=== PATIENT | female | born 1970 | race Caucasian/White ===

== ENCOUNTER 2016-10-11 07:04 | Emergency (ER) | payer BC ==
--- NOTE | 2016-10-11 07:27 | UC ---
Respiratory Complaint HPI - HPI Summary HPI Summary: The patient comes in today for: 1. Cough: Onset: yesterday. Palliative/provocative: Nothing makes it better or worse except laughing makes the cough worse. Quality: Dry. Region: Lungs Severity: 0/10 Time: Cough comes and goes. Associated symptoms: Chest pain: None. Dyspnea: "Somewhat--minor." Rhinitis: None. Fever: 37.1 this morning. Last night: Broke a sweat and at one time her heart was "racing." When I first checked it, it was 160. Then it dropped down to 120-130." She has "minor " palpitations "every once in a while--not a consistent thing." She has not had any symptoms (chest pain, dyspnea, near-syncope) with her heart fluttering. Only other symptoms, body aches which are not bad by her report. * - History of Current Complaint Chief Complaint: UCRespiratory Stated Complaint: COUGH/CONGESTION Time Seen by Provider: 10/11/16 07:20 Hx Obtained From: Patient Hx Last Menstrual Period: UTERINE ABLATION 2012 - Allergies/Home Medications Allergies/Adverse Reactions: Allergies Allergy/AdvReac Type Severity Reaction Status Date / Time No Known Allergies Allergy Verified 10/11/16 07:09 Home Medications: Home Medications Albuterol Sulfate [Proair Respiclick] 108 mcg IN 10/11/16 [History] Cholecalciferol [D 1000] 1,000 unit PO DAILY 10/11/16 [History Confirmed ] Glucosamine-Chondroitin [Glucosamine & Chondroitin 500-400 mg] 1 cap PO DAILY [History Confirmed 10/11/16] Ibuprofen TAB* [Advil TAB*] 400 mg PO Q6H PRN 10/11/16 [History Confirmed ] Methylcellulose (Laxative) [Fiber Therapy] 500 mg PO DAILY 10/11/16 [History Confirmed 10/11/16] Otc, Diuretic 10/11/16 [History] PMH/Surg Hx/FS Hx/Imm Hx Previously Healthy: No Endocrine History Of: Denies: Diabetes, Thyroid Disease, Hyperthyroidism, Hypothyroidism, Dyslipidemia Cardiovascular History Of: Denies: Cardiac Disorders, Hypertension, Pacemaker/ICD, Myocardial Infarction , Congestive Heart Failure, Atrial Fibrillation, Deep Vein Thrombosis, Bleeding Disorders Respiratory History Of: Reports: Asthma - She will use an inhaler occasionally. Denies: COPD, Bronchitis, Pneumonia, Pulmonary Embolism GI/ History Of: Denies: Gastroesophageal Reflux, Ulcer, Gastrointestinal Bleed, Gall Bladder Disease, Kidney Stones, Diverticulitis, Renal Disease, Urosepsis Neurological History Of: Denies: TIA, CVA, Dementia, Seizures, Migraine Psychological History Of: Reports: Anxiety - NO MEDS - CLAUSTAPHOBIA Denies: Depression, Bipolar Disorder, Schizophrenia, Post Traumatic Stress Disorder Cancer History Of: Denies: Lung Cancer, Colorectal Cancer, Breast Cancer, Prostate Cancer, Cervical Cancer Other History Of: Negative For: HIV, Hepatitis B, Hepatitis C, Anticoagulant Therapy - Surgical History Surgical History: Yes Surgery Procedure, Year, and Place: 2012 ablation and sterilization, [place] [facility]. 10/22 RT SHOULDER SURGERY. VEIN STRIPPING 10/24. COLONOSCOPY WITH POLOP REMOVAL - Family History Known Family History: Positive: Hypertension Negative: Cardiac Disease - Social History Occupation: Employed Full-time Alcohol Use: Weekly Alcohol Amount: few times a week Substance Use Type: None Smoking Status (MU): Former Smoker Type: Cigarettes Amount Used/How Often: 2-3 cigarettes daily Length of Time of Smoking/Using Tobacco: LONG TIME OFF AND ON When Did the Patient Quit Smoking/Using Tobacco: JANUARY 2016 - Immunization History Most Recent Influenza Vaccination: none Review of Systems Constitutional: Negative Skin: Negative Eyes: Negative ENT: Negative Respiratory: Cough Cardiovascular: Negative Gastrointestinal: Negative Genitourinary: Negative All Other Systems Reviewed And Are Negative: Yes Physical Exam Triage Information Reviewed: Yes Appearance: Well-Appearing, No Pain Distress, Well-Nourished Vital Signs: Initial Vital Signs Temp 98.1 F 10/11/16 07:13 Pulse 94 10/11/16 07:13 Resp 20 10/11/16 07:13 BP 130/87 10/11/16 07:13 Pulse Ox 99 10/11/16 07:13 Vital Signs Reviewed: Yes Eyes: Positive: Conjunctiva Clear. Negative: Discharge ENT: Positive: Hearing grossly normal. Negative: Pharyngeal erythema, Nasal congestion, Nasal drainage, TM bulging, TM dull, TM red, Tonsillar swelling, Tonsillar exudate Dental: Negative: Gross Decay/Caries @, Dental Fracture @ Neck: Positive: Supple, Nontender, No Lymphadenopathy. Negative: Nuchal Rigidity Respiratory: Positive: Lungs clear, No respiratory distress, No accessory muscle use. Negative: Accessory muscle use, Crackles, Wheezing Cardiovascular: Positive: RRR, No Murmur Abdomen Description: Positive: Nontender, No Organomegaly, Soft. Negative: Distended, Guarding Musculoskeletal: Positive: Strength Intact, ROM Intact, No Edema Neurological: Positive: Alert, Muscle Tone Normal Psychological: Positive: Age Appropriate Behavior, Consolable Skin: Negative: rashes, breakdown UC Diagnostic Evaluation - Laboratory O2 Sat by Pulse Oximetry: 99 Respiratory Course/Dx - Course Course Of Treatment: Patient wanted an antibiotic in case her cough/rhinitis turns purulent with continued symptoms. - Differential Dx/Diagnosis Differential Diagnosis/HQI/PQRI: Bronchitis, Laryngitis, Sinusitis Provider Diagnoses: Upper respiratory infection (viral) Discharge - Discharge Plan Condition: Stable Disposition: HOME Patient Education Materials: Upper Respiratory Infection (ED) Referrals: Lauren Jennings MD [Primary Care Provider] - 1 Week (Please see your primary care provider in about a week to see how well you are doing. If you get worse, please be seen sooner.)
[2016-10-11 07:41] VITALS: BP 130/87
== END 2016-10-11 07:48 | disposition home or self-care (01) ==
LOC: UCCORT 07:04
DX: J06.9 Acute upper respiratory infection, unspecified (principal); Z87.891 Personal history of nicotine dependence
CPT/HCPCS: 99212; G0463

== ENCOUNTER 2018-11-27 07:00 | Emergency (ER) | payer BC ==
[2018-11-27 07:19] VITALS: BP 130/81
--- NOTE | 2018-11-27 07:36 | ED ---
Respiratory - HPI Summary HPI Summary: 48 yr old female with the complaint of coughing, sputum production, sinus pain and pressure, post nasal drip. Onset over a week ago. She states she feels she is wheezing. She used her albuterol MDI that is left over from her last bronchitis episode, and it is helping. She is not a smoker any longer, but she has a 20 pack year history. She denies fever, but has felt fatigued. No other complaints. - History of Current Complaint Chief Complaint: UCRespiratory Stated Complaint: UPPER RESPIRATORY CONCERN Time Seen by Provider: 11/27/18 07:20 Pain Intensity: 0 - Allergy/Home Medications Allergies/Adverse Reactions: Allergies Allergy/AdvReac Type Severity Reaction Status Date / Time No Known Allergies Allergy Verified 11/27/18 07:13 Home Medications: Home Medications Hormone Patch 1 patch TOPICAL THSA 11/27/18 [History Confirmed 11/27/18] medroxyPROGESTERone TAB* [Provera TAB*] 2.5 mg PO EVERY OTHER DAY 11/27/18 [ History Confirmed 11/27/18] PMH/Surg Hx/FS Hx/Imm Hx Endocrine/Hematology History: Denies: Hx Anticoagulant Therapy, Hx Diabetes, Hx Thyroid Disease Cardiovascular History: Denies: Hx Congestive Heart Failure, Hx Deep Vein Thrombosis, Hx Hypertension - has been borderline, Hx Myocardial Infarction, Hx Pacemaker/ICD Respiratory History: Denies: Hx Asthma, Hx Chronic Obstructive Pulmonary Disease (COPD), Hx Lung Cancer, Hx Pneumonia, Hx Pulmonary Embolism GI History: Denies: Hx Gall Bladder Disease, Hx Gastrointestinal Bleed, Hx Ulcer, Hx Urosepsis History: Denies: Hx Dialysis, Hx Kidney Stones, Hx Renal Disease Musculoskeletal History: Reports: Hx Arthritis - LOWER BACK, Hx Bursitis - HX OF RIGHT HIP - NO PROBLEMS PRESENTLY Sensory History: Denies: Hx Contacts or Glasses, Hx Hearing Aid Opthamlomology History: Denies: Hx Contacts or Glasses Neurological History: Denies: Hx Dementia, Hx Migraine, Hx Seizures, Hx Transient Ischemic Attacks (TIA) Psychiatric History: Reports: Hx Anxiety - NO MEDS - CLAUSTAPHOBIA Denies: Hx Depression, Hx Panic Disorder, Hx Schizophrenia, Hx Bipolar Disorder - Surgical History Surgery Procedure, Year, and Place: 2011 [facility]22 RT SHOULDER SURGERY. VEIN STRIPPING 10/24 Hx Anesthesia Reactions: No - LOCAL ANESTHESIA IN OFFICE Infectious Disease History: No Infectious Disease History: Denies: Traveled Outside the [place] in Last 30 Days - Family History Known Family History: Positive: Hypertension Negative: Cardiac Disease - Social History Occupation: Employed Full-time Alcohol Use: Weekly Alcohol Amount: few times a week Substance Use Type: Reports: None Smoking Status (MU): Former Smoker Type: Cigarettes Amount Used/How Often: 2-3 cigarettes daily Length of Time of Smoking/Using Tobacco: LONG TIME OFF AND ON Review of Systems Positive: Fatigue Positive: Nasal Discharge, Other - sinsu pressure Positive: Cough All Other Systems Reviewed And Are Negative: Yes Physical Exam Triage Information Reviewed: Yes Vital Signs On Initial Exam: Initial Vitals Temp Pulse Resp BP Pulse Ox 97.5 F 77 16 130/81 100 11/27/18 07:12 11/27/18 07:12 11/27/18 07:12 11/27/18 07:12 11/27/18 07:12 Vital Signs Reviewed: Yes Appearance: Positive: Well-Appearing, No Pain Distress Skin: Positive: Warm, Skin Color Reflects Adequate Perfusion Head/Face: Positive: Normal Head/Face Inspection Eyes: Positive: EOMI ENT: Positive: Nasal congestion, TMs normal, Sinus tenderness Neck: Positive: Nontender Respiratory/Lung Sounds: Positive: Clear to Auscultation, Breath Sounds Present Cardiovascular: Positive: RRR. Negative: Murmur Abdomen Description: Negative: Distended Musculoskeletal: Positive: Strength/ROM Intact Neurological: Positive: Sensory/Motor Intact, Alert, Oriented to Person Place, Time, CN Intact II-III Psychiatric: Positive: Normal Diagnostics - Vital Signs Vital Signs Temp Pulse Resp BP Pulse Ox 11/27/18 07:12 97.5 F 77 16 130/81 100 - Laboratory Lab Statement: Any lab studies that have been ordered have been reviewed, and results considered in the medical decision making process. Disposition - Course Course Of Treatment: 48 yr old with sinusitis and bronchitis. Rx with augmentin , prednisone and albuterol. - Diagnoses Provider Diagnoses: Sinusitis, Acute bronchitis Discharge - Sign-Out/Discharge Documenting (check all that apply): Patient Departure All imaging exams completed and their final reports reviewed: No Studies - Discharge Plan Condition: Good Disposition: HOME Prescriptions: Albuterol HFA INHALER* [Ventolin HFA Inhaler*] 1 - 2 puff INH Q6H PRN #1 mdi PRN Reason: Cough Amoxicillin/Clavulanate TAB* [Augmentin TAB 875*] 875 mg PO BID #20 tab predniSONE TAB* [Deltasone 20 MG TAB*] 40 mg PO DAILY #10 tab Patient Education Materials: Sinusitis (ED), Acute Bronchitis (ED) Referrals: Lauren Jennings MD [Primary Care Provider] - 2 Days - Billing Disposition and Condition Condition: GOOD Disposition: Home
== END 2018-11-27 07:35 | disposition home or self-care (01) ==
LOC: UCCORT 07:00
DX: J20.9 Acute bronchitis, unspecified (principal); J32.9 Chronic sinusitis, unspecified; Z87.891 Personal history of nicotine dependence
CPT/HCPCS: 99212; G0463

== ENCOUNTER 2019-03-17 10:12 | Emergency (ER) | payer BC ==
--- OUTSIDE RECORDS SUMMARY | 2019-03-17 10:31 | XMS REPORT | Continuity of Care Document ---
:1970 External Reference #:[id number] Author Name Jeni Fabian Care Team Providers Name Role Phone Patient's Choice Care Team Information Pediatric Licensed Practical Nurse Unavailable Lauren Jennings MD Primary Care Physician Unavailable Payers Date Identification Numbers Payment Provider Subscriber Policy Number: [id number] [facility] Tanvi Oconnor PayID: [id number] [address] [place] [address] Problems Active Problems Provider Date Magnetic resonance imaging of brain abnormal Tyra Gardiner M.D. Onset: 09/27 Note: nonspecific white matter changes (stable on serial MRI Brains from May 2011 to August 2014). Idiopathic stabbing headache Tyra Gardiner M.D. 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 hours, as needed for stabbing headache, take with food. Glucosamine Chondroitin 1 po qd Unknown Tablets Lysine 1 po qd Unknown 1000mg Tablets Vitamin D3 High Potency 1 by mouth Unknown 1000Unit every day Capsules Multivitamins 1 by mouth Unknown Capsules every day Estradiol Apply 1 Patch Unknown 0.05mg/24HR Patches On The Skin 2 Biweek Times Weekly Medroxyprogesterone Take 1 Tablet Unknown Acetate By Mouth Every 2.5mg Tablets Day History Medications Indomethacin take 1 by mouth 30caps Tyra Gardiner, 02/22/2014 - 50mg Capsules [id number] as needed M.D. 09/27/2014 for sharp stabbing headaches. Take with food. Percocet 1-2 tabs po q 4-6 60tabs Arash Greene, 10/14/2013 - 5-325mg Tablets prn pain M.D. 12/07/2013 Diazepam 1 tab po 1 hour 2tabs Daysi Santamaria, 07/15/2013 - 5mg Tablets prior to MRI. 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 Wou will need superintendent drivers to take you home from facilit Calcium 2 po qd 60tabs Unknown - 500mg Tablets 04/30/2016 Co Q10 Maximum Strength 1 po qd Unknown - 200mg 12/11/2015 Capsules Metformin HCL 1 by mouth once Unknown - 1000mg Tablets daily.. 09/10/2016 Spironolactone 1 by mouth once Unknown - 25mg Tablets daily 09/10/2016 Hydrocodone-Acetaminophen 1 by mouth every Unknown - 5-325mg 4-6 hours prn. 04/30/2016 Tablets Meloxicam once daily with Unknown - 15mg Tablets food 04/30/2016 Levocetirizine 1 by mouth every Unknown - Dihydrochloride day 04/30/2016 5mg Tablets Montelukast Sodium 1 by mouth every Unknown - 10mg Tablets day 04/30/2016 Hydrochlorothiazide Take 1 Tablet By Unknown - 25mg Tablets Mouth Every Day 02/21/2019 Medications Administered in Office Medication SIG Qnty Indications Ordering Provider Date Celestone 3 mg and 3mg Juan Luis Ramirez MD 11/19/2017 Injection Celestone 3 mg and 3mg Juan Luis Ramirez MD 11/19/2017 Injection Depomedrol 40MG Juan Luis Ramirez MD 11/25/2016 Injection Depomedrol 40MG Juan Luis Ramirez MD 09/20/2016 Injection Vital Signs Date Vital Result Comment 03/01/2019 9:32am Height 65 inches 5'5" Weight 160.00 lb Heart Rate 77 /min BP Systolic Sitting 120 mmHg BP Diastolic Sitting 80 mmHg Respiratory Rate 12 /min Pain Level 5 O2 % BldC Oximetry 93 % BMI (Body Mass Index) 26.6 kg/m2 11/19/2017 8:33am Height 65 inches 5'5" Weight 158.00 lb Heart Rate 66 /min BP Systolic Sitting 120 mmHg BP Diastolic Sitting 78 mmHg Respiratory Rate 16 /min Pain Level 2 BMI (Body Mass Index) 26.3 kg/m2 11/25/2016 2:33pm Height 65 inches 5'5" Weight 158.00 lb Heart Rate 78 /min BP Systolic Sitting 118 mmHg BP Diastolic Sitting 80 mmHg Respiratory Rate 16 /min Pain Level 4 BMI (Body Mass Index) 26.3 kg/m2 11/01/2016 1:45pm Height 65 inches 5'5" Weight 158.00 lb BP Systolic Sitting 108 mmHg BP Diastolic Sitting 72 mmHg Respiratory Rate 18 /min Pain Level 2 BMI (Body Mass Index) 26.3 kg/m2 09/20/2016 3:11pm Height 65 inches 5'5" Weight 155.00 lb BMI (Body Mass Index) 25.8 kg/m2 09/11/2016 8:51am Height 65 inches 5'5" Weight 155.00 lb BP Systolic Sitting 110 mmHg BP Diastolic Sitting 78 mmHg Pain Level 4 BMI (Body Mass Index) 25.8 kg/m2 05/29/2016 8:19am Height 65 inches 5'5" Weight 155.00 lb Heart Rate 68 /min BP Systolic Sitting 134 mmHg BP Diastolic Sitting 86 mmHg BMI (Body Mass Index) 25.8 kg/m2 05/01/2016 8:13am Height 65 inches 5'5" Weight 157.00 lb Heart Rate 58 /min BP Systolic 132 mmHg BP Diastolic 82 mmHg Respiratory Rate 16 /min BMI (Body Mass Index) 26.1 kg/m2 12/12/2015 10:10am Height 65 inches 5'5" Weight 157.00 lb Heart Rate 60 /min BP Systolic Sitting 122 mmHg BP Diastolic Sitting 88 mmHg BMI (Body Mass Index) 26.1 kg/m2 09/27/2014 2:11pm Height 65 inches 5'5" Weight 160.00 lb Heart Rate 58 /min BP Systolic Sitting 112 mmHg BP Diastolic Sitting 78 mmHg BMI (Body Mass Index) 26.6 kg/m2 05/19/2014 1:39pm Height 65 inches 5'5" Weight 158.00 lb Pain Level 1 BMI (Body Mass Index) 26.3 kg/m2 01/20/2014 7:59am Height 65 inches 5'5" Weight 158.00 lb Heart Rate 75 /min BP Systolic 136 mmHg BP Diastolic 96 mmHg Pain Level 2 BMI (Body Mass Index) 26.3 kg/m2 12/07/2013 11:31am Height 65 inches 5'5" Weight 158.00 lb Heart Rate 85 /min BP Systolic 144 mmHg BP Diastolic 97 mmHg BMI (Body Mass Index) 26.3 kg/m2 11/02/2013 8:04am Height 65 inches 5'5" Heart Rate 72 /min BP Systolic 145 mmHg BP Diastolic 105 mmHg 10/14/2013 8:07am Height 65 inches 5'5" Weight 155.00 lb Heart Rate 68 /min BP Systolic 137 mmHg BP Diastolic 91 mmHg BMI (Body Mass Index) 25.8 kg/m2 04/20/2012 3:50pm Weight 142.00 lb Heart Rate 70 /min BP Systolic Sitting 120 mmHg BP Diastolic Sitting 78 mmHg Results Test Date Facility Test Result H/L Range Note Surgical 10/20/2013 [facility] S RUN DATE: 1 Pathology [facility] 10/21/ [place] [address] NOTE> [phone] Laboratory test 10/20/2013 [facility] Urine Negative Negative 2 finding [address] [place] [address] [phone] 1 RUN DATE: 10/21/13 [facility] LAB LIVE PAGE 1 RUN TIME: [address] [place], [place] [address] Specimen Inquiry Name: TANVI COONNOR DOB: [address]: Arash Greene MD Acct: [id number] Unit: [id number] AGE: 43 Location: [place] Re10/20/13 SEX: F [place] [facility] [place] [id number] YUNI: 10/20/13- [facility] DR: Arash Greene MD REQ: [id number] RECD: 10/20/13 STATUS: SOUT _ ORDERED: LEVEL III FINAL DIAGNOSIS Shoulder, right, arthroscopic shavings: Benign cartilaginous tissue. CLINICAL HISTORY No history given. GROSS DESCRIPTION The specimen is received in formalin labeled Tanvi Oconnor, Right Shoulder Shavings, and consists of a 0.3 x 0.2 x 0.1 cm. aggregate of yellow and white tissue fragments. The specimen is scant and may not survive processing. Submitted entirely, one cassette. Signed (signature on file) Lianna Hall MD 1815 END OF REPORT * ML=Testing performed at Main Lab DEPARTMENT OF PATHOLOGY, [address] [place] [address] Alfred Cohn M.D. Director [place] Permit #[id number] 2 If is still suspected, please repeat test after 48 to 72 hours. This test detects intact HCG only and is indicated for the early detection of . Procedures Date Code Description Status 03/01/201991019 Inject/Drain Joint/Bursa Major W/O US Completed 11/19/201775149 Inject/Drain Joint/Bursa Major W/O US Completed 11/19/2017 44447 Inject Tendon Sheath Or Ligament Aponeurosis Eg Plantar Completed Fascia 11/25/2016 37475 Rad Shoulder Comp, Min. 2 Views Completed 11/25/2016 92020 Inject/Drain Joint/Bursa Intermediate W/O US Completed 09/20/2016 83458 Inject/Drain Joint/Bursa Major W/O US Completed 09/11/2016 93833 Radiologic Exam Hip Unilateral With Pelvis 2-3 Views Completed 05/01/2016 25193 Rad Exam; Hand Comp Completed 10/20/2013 82435 Arthroscopy,Shoulder,Surg,Capsulorrhaphy Completed 10/20/2013 00323 Arthroscopy,Shoulder,Surg,Capsulorrhaphy Completed 04/20/2012 97592 Rad Shoulder Comp, Min. 2 Views Completed Encounters Type Date Location Provider Dx Diagnosis Office Visit 11/19/2017 Orthopedic Juan Luis Ramirez, M70.62 Trochanteric 8:30a [facility] AT bursitis, left hip [facility] S73.192D Other sprain of left hip, subsequent encounter Office Visit 09/04/2017 1:30p [facility] AT Joey Dubon, L82.1 Other seborrheic [place] keratosis D22.5 Melanocytic nevi of trunk L81.4 Other melanin hyperpigmentation B00.1 Herpesviral vesicular dermatitis Office Visit 11/25/2016 Orthopedic Juan Luis Bonilla S43.51xA Sprain of right 2:30p [facility] Ramirez MD acromioclavicular AT [facility] joint, initial encounter Office Visit 11/01/2016 Orthopedic Juan Luis Bonilla S73.192D Other sprain of left 3:15p [facility] Ramirez MD hip, subsequent AT [facility] encounter M70.62 Trochanteric bursitis, left hip Office Visit 09/20/2016 Orthopedic Juan Luis Ramirez, S73.192D Other sprain of 3:15p [facility] ZHENG left hip, AT [facility] subsequent encounter Office Visit 09/11/2016 Orthopedic Juan Luis Ramirez, M25.552 Pain in left hip 8:45a [facility] ZHENG AT [facility] Office Visit 05/29/2016 Orthopedic Hali M79.642 Pain in left 8:15a [facility] Ramirez M.D. hand AT [facility] M79.641 Pain in right hand Office Visit 05/01/2016 8:00a Orthopedic Hali M13.841 Other specified [facility] Ramirez M.D. arthritis, right AT [facility] hand M13.842 Other specified arthritis, left hand M79.641 Pain in right hand M79.642 Pain in left hand Office Visit 12/12/2015 [facility] Tyra Gardiner, R94.02 Abnormal brain 10:00a [facility] scan Van G44.85 Primary stabbing headache Office Visit 09/27/2014 [facility] Tyra Gardiner, 794.09 Function Study 2:00p [facility] Other Abnormal Senior Marketing Data Analyst Brain & Central Nervous System 339.85 Primary Stabbing Headache 782.0 Skin Sensation Disturbance Office Visit 05/19/2014 1:30p Orthopedic Arash Greene, 840.8 Sprains & Services Of [facility] Strains Shoulder & Upper Arm Other Spec Sites Office Visit 02/22/2014 9:00a [facility] Tyra Gardiner, 794.09 Function Study Neurologic [facility] Other Abnormal Van Brain & Central Nervous System 339.85 Primary Stabbing Headache Office Visit 01/20/2014 8:00a Abdulaziz Greene, 727.60 Ruptured Tendon [facility] Unspec C.M.ABree Nontraumatic Office Visit 09/02/2013 8:00a Orthopedic Arash Greene, 840.7 [facility] Labrum Lesions C.M.A. Office Visit 08/24/2013 12:45p [facility] Tyra 794.09 Function Study Neurologic Serv [facility] Gardiner Other Abnormal Of Van Brain & Central Nervous System 722.4 Intervertebral Disc Degeneration Cervical Office Visit 07/22/2013 3:00p Sports Medicine Haja Zuniga, 726.19 Shoulder Of Senior Marketing Data Analyst AT M.DBree Disorders Other [facility] Spec Office Visit 07/13/2013 9:40a Sports Medicine Haja Zuniga, Usman6.19 Shoulder [facility] Disorders Other [facility] Spec Office Visit 06/11/2012 2:45p Sports Medicine Haja Zuniga, 726.19 [facility] Disorders Other [facility] Spec Office Visit 04/20/2012 3:30p Sports Medicine Haja Zuniga, 726.19 [facility] Disorders Other [facility] Spec Plan of Treatment Future Appointment(s):03/17/2019 9:10 am - Joey Dubon MD at [facility] AT Yujtujfv77/24/2019 - Juan Luis Ramirez, MDS43.52xA Sprain of left acromioclavicular joint, initial encounterFollow up:Follow up: As needed
[2019-03-17 10:41] VITALS: BP 123/83
--- NOTE | 2019-03-17 10:52 | UC ---
Throat Pain/Nasal Soren HPI - HPI Summary HPI Summary: sinus pain and pressure x 10 days nasal congestion , pnd , no sore throat, no fever, no chills had a cough at the start but the cough is better now - History of Current Complaint Chief Complaint: UCGeneralIllness Stated Complaint: SINUS CONCERN Time Seen by Provider: 03/17/19 10:32 Hx Obtained From: Patient Hx Last Menstrual Period: N/A ?: No Onset/Duration: Gradual Onset, Lasting Days - 10, Still Present Severity: Moderate Pain Intensity: 0 Cough: Nonproductive Associated Signs & Symptoms: Positive: Sinus Discomfort, Nasal Discharge. Negative: Wheezing, Hoarseness, Fever, Vomiting, Rash - Allergies/Home Medications Allergies/Adverse Reactions: Allergies Allergy/AdvReac Type Severity Reaction Status Date / Time No Known Allergies Allergy Verified 03/17/19 10:41 Home Medications: Home Medications Cetirizine* [ZyrTEC 10 MG TAB*] 1 tab PO ONCE 03/17/19 [History Confirmed ] PMH/Surg Hx/FS Hx/Imm Hx Previously Healthy: Yes Other History Of: Negative For: HIV, Hepatitis B, Hepatitis C, Anticoagulant Therapy - Surgical History Surgical History: Yes Surgery Procedure, Year, and Place: 2011 ablation and sterilization, [facility]. 10/22 RT SHOULDER SURGERY. VEIN STRIPPING 10/24 - Family History Known Family History: Positive: Hypertension Negative: Cardiac Disease - Social History Alcohol Use: Daily Alcohol Amount: few times a week Substance Use Type: None Smoking Status (MU): Former Smoker Type: Cigarettes Amount Used/How Often: 2-3 cigarettes daily Length of Time of Smoking/Using Tobacco: LONG TIME OFF AND ON When Did the Patient Quit Smoking/Using Tobacco: 2015 - Immunization History Most Recent Influenza Vaccination: none Review of Systems All Other Systems Reviewed And Are Negative: Yes Constitutional: Positive: Negative Skin: Positive: Negative Eyes: Positive: Negative ENT: Positive: Nasal Discharge. Negative: Sore Throat Respiratory: Positive: Cough Cardiovascular: Positive: Negative Is Patient Immunocompromised?: No Physical Exam Triage Information Reviewed: Yes Appearance: Well-Appearing, No Pain Distress, Well-Nourished Vital Signs: Initial Vital Signs Temp 99.1 F 03/17/19 10:35 Pulse 69 03/17/19 10:35 Resp 14 03/17/19 10:35 BP 123/83 03/17/19 10:35 Pulse Ox 99 03/17/19 10:35 Vital Signs Reviewed: Yes Eye Exam: Normal Eyes: Positive: Conjunctiva Clear ENT: Positive: Normal ENT inspection, Hearing grossly normal, Nasal congestion, Nasal drainage, TMs normal, Sinus tenderness. Negative: TM bulging, TM dull, TM red Neck: Positive: Supple, Nontender, No Lymphadenopathy Respiratory: Positive: Chest non-tender, Lungs clear, Normal breath sounds, No respiratory distress Cardiovascular: Positive: RRR, No Murmur, Pulses Normal Skin Exam: Normal Throat Pain/Nasal Course/Dx - Differential Dx/Diagnosis Provider Diagnosis: Sinusitis Discharge - Sign-Out/Discharge Documenting (check all that apply): Patient Departure All imaging exams completed and their final reports reviewed: No Studies - Discharge Plan Condition: Stable Disposition: HOME Prescriptions: Amoxicillin/Clavulanate TAB* [Augmentin TAB 875*] 875 mg PO BID #20 tab Fluticasone NASAL SPRAY 50MCG* [Flonase NASAL SPRAY 50MCG*] 2 spray BOTH NARES DAILY #1 btl Patient Education Materials: Sinusitis (ED) Referrals: Lauren Jennings MD [Primary Care Provider] - If Needed - Billing Disposition and Condition Condition: STABLE Disposition: Home
== END 2019-03-17 10:53 | disposition home or self-care (01) ==
LOC: UCCORT 10:12
DX: J32.9 Chronic sinusitis, unspecified (principal); Z87.891 Personal history of nicotine dependence
CPT/HCPCS: 99212; G0463

== ENCOUNTER 2019-07-30 09:48 | Emergency (ER) | payer BC ==
[2019-07-30 10:33] VITALS: BP 127/80
--- NOTE | 2019-07-30 11:24 | UC ---
General HPI - HPI Summary HPI Summary: Patient is a 49-year-old female presenting with complaints of "racing heart" for the past year. Patient states these episodes occur "less than weekly" and "only at night." Denies ever having episodes during the day. Patient states she wakes up with HR of up to 160 sometimes that "can last between 20-60 minutes" but then she just goes back to sleep. Patient notes mild SOB when her heart rate is "really high." Denies chest pain. Denies lightheadedness. Denies blurry vision. Denies bodily weakness. Patient states she "feels fine otherwise." Patient denies history of cardiac disease or htn. Notes family history of hypertension in her mother and grandmother. Also notes that her brother had a "random heart attack" at the age of 32. Denies history of anxiety. States she has 2-3 cups of coffee a day. Denies illegal substance use. Fromer smoker for 15 years, quit 3 years ago. 1-3 glasses of wine daily. States only taking daily progesterone and valproex for cold sores. Patient states she has been worked up before by her PCP without any answers. States she wore a holter monitor 8 months ago that "was messed up" so she never had adequate data from it. Patient states she had an episode this morning and came to be seen because she is concerned she will not be able to have her shoulder surgery in two weeks. - History of Current Complaint Chief Complaint: UCCardiac Stated Complaint: Episodic "Racing Heart" Hx Obtained From: Patient Hx Last Menstrual Period: N/A Pain Intensity: 0 - Allergy/Home Medications Allergies/Adverse Reactions: Allergies Allergy/AdvReac Type Severity Reaction Status Date / Time No Known Allergies Allergy Verified 07/30/19 10:27 Home Medications: Home Medications ValACYclovir (*) [Valtrex 500 mg (*)] 500 mg PO DAILY 07/30/19 [History Confirmed 07/30/19] PMH/Surg Hx/FS Hx/Imm Hx Previously Healthy: Yes Other History Of: Negative For: HIV, Hepatitis B, Hepatitis C, Anticoagulant Therapy - Surgical History Surgical History: Yes Surgery Procedure, Year, and Place: V[place]ose Vein Stripping, 2016, [place]; Right Shoulder Labrial Tears, 2014, [place]; Uterine Ablation, 2012, [place] - Family History Known Family History: Positive: Hypertension Negative: Cardiac Disease - Social History Alcohol Use: 1-3 glasses of wine daily Alcohol Amount: few times a week Substance Use Type: Other Substance Use Comment - Amount & Last Used: 3-4 cups of coffee daily Smoking Status (MU): Former Smoker Type: Cigarettes Amount Used/How Often: ~1/3 PPD Length of Time of Smoking/Using Tobacco: On and Off x 15 Years When Did the Patient Quit Smoking/Using Tobacco: 2016 - Immunization History Most Recent Influenza Vaccination: none Review of Systems All Other Systems Reviewed And Are Negative: Yes Constitutional: Positive: Negative Eyes: Positive: Negative Respiratory: Positive: Shortness Of Breath - with episodes of heart racing. Negative: Cough Cardiovascular: Positive: Palpitations. Negative: Chest Pain Gastrointestinal: Positive: Negative. Negative: Vomiting, Nausea Motor: Positive: Negative Neurological: Positive: Negative Psychological: Positive: Negative Physical Exam Triage Information Reviewed: Yes Appearance: Well-Appearing, No Pain Distress, Well-Nourished Vital Signs: Initial Vital Signs Temp 97.3 F 07/30/19 10:23 Pulse 72 07/30/19 10:23 Resp 16 07/30/19 10:23 BP 127/80 07/30/19 10:23 Pulse Ox 100 07/30/19 10:23 Vital Signs Reviewed: Yes Eyes: Positive: Conjunctiva Clear ENT: Positive: Hearing grossly normal Neck: Positive: Supple Respiratory Exam: Normal Respiratory: Positive: Chest non-tender, Lungs clear, Normal breath sounds, No respiratory distress Cardiovascular Exam: Normal Cardiovascular: Positive: RRR, Pulses Normal Musculoskeletal: Positive: No Edema Neurological: Positive: Alert, Muscle Tone Normal Psychological: Positive: Age Appropriate Behavior Diagnostics - EKG Cardiac Rate: NL - 69 Cardiac Rhythm: Sinus: Normal Ectopy: None ST Segment: Normal Course/Dx - Course Course Of Treatment: Discussed with patient that it will be up to her surgeon whether or not it is safe for her to have her shoulder surgery in 2 weeks. I recommended patient go to the Emergency Room from here or at her earliest convenience today for further evaluation of palpitations, including blood work. I instructed patient to establish with PCP or cardiology as soon as possible for further evaluation of symptoms. I instructed patient to go straight to ED or call 911 if symptoms recur, worsen, or she experiences new symptoms. Patient voiced understanding and agreed with treatment plan. Patient stable, VS normal, and asymptomatic throughout visit and upon departure. - Diagnoses Provider Diagnosis: Intermittent palpitations Discharge ED - Sign-Out/Discharge Documenting (check all that apply): Patient Departure All imaging exams completed and their final reports reviewed: No - Discharge Plan Condition: Stable Disposition: HOME Patient Education Materials: Heart Palpitations (ED) Referrals: [facility] [Outside] - As Soon As Possible Nic Cm DO [Medical Doctor] - As Soon As Possible Additional Instructions: As discussed, your EKG was normal today. It is important that you speak with your surgeon about your symptoms and whether or not it is safe for you to have your shoulder surgery. It is recommended that you go to the Emergency Room at your earliest convenience for further evaluation of your symptoms, including receiving blood work. Go immediately to the emergency room or call 911 if you begin experiencing symptoms that are new or worsening. You may call the Physician Referral or the Clinical Appeals Reviewer referral listed below for further workup of your symptoms. - Billing Disposition and Condition Condition: STABLE Disposition: Home
== END 2019-07-30 11:28 | disposition home or self-care (01) ==
LOC: UCCORT 09:48
DX: R00.2 Palpitations (principal); R06.02 Shortness of breath; Z87.891 Personal history of nicotine dependence
CPT/HCPCS: 93005; 99211; G0463

== ENCOUNTER 2019-08-16 06:34 | Day surgery (SDC) | payer BC ==
[~2019-08-16 06:34] MED LIST: Buffered Lidocaine 1% SYRIN* 1 ML/SYRINGE INTRADERM ONE; Famotidine IV* 10 MG/ML 2 ML (20 mg) IV ONE; Lactated Ringers 1000 ML Bag* 1,000 ML IV SCH
[2019-08-16] MEDS ORDERED: ceFAZolin 2 GM PREMIX in ORs 2 GM/50 ML BAG ONE (06:43)
[2019-08-16] MEDS ORDERED: Ropivacaine 0.2% * 2 MG/ML VIAL ONE (07:11)
[2019-08-16] MEDS ORDERED: Lidocaine 1% w EPI 1:200,000* SDV 30 ML VIAL ONE (07:11)
[2019-08-16] MEDS ORDERED: Lidocaine 1% INJ* 10 MG/ML 30 ML SDV ONE (07:20)
[2019-08-16] MEDS ORDERED: ROPIVACAINE 5 MG/ML 30 ML BTL (0.5%) ONE (07:20)
[2019-08-16] MEDS ORDERED: Midazolam* 1 MG/ML 5 ML VIAL (5 MG) ONE (07:28)
[2019-08-16] MEDS ORDERED: fentaNYL* 50 MCG/ML 2 ML VIAL (100 MCG VIAL) ONE (07:44)
[2019-08-16] MEDS ORDERED: Propofol* 10 MG/ML 20 ML BTL ONE (08:44)
[2019-08-16] MEDS ORDERED: Succinylcholine* 20 MG/ML 10 ML VIAL ONE (08:44)
[2019-08-16] MEDS ORDERED: Dexamethasone IV* 4 MG/ML 1 ML (4 MG) ONE (08:44)
[2019-08-16] MEDS ORDERED: Ketorolac INJ* 30 MG/ML 1 ML VIAL ONE (08:44)
[2019-08-16] MEDS ORDERED: Lidocaine 2% PF * 5 ML VIAL ONE (08:44)
[2019-08-16] MEDS ORDERED: Ondansetron INJ* 2 MG/ML VIAL ONE (08:44)
[2019-08-16] MEDS ORDERED: diPHENhydraMINE IV* 50 MG/ML 1 ml VIAL (BENADRYL) ONE (08:44)
[2019-08-16] MEDS ORDERED: oxyCODONE/Acetamin 5/325 MG* TAB PO PRN (08:57)
[2019-08-16] MEDS ORDERED: DiMENhydriNATE IV* 50 MG/ML VIAL IV PUSH PRN (08:57)
[2019-08-16] MEDS ORDERED: Naloxone* 0.4 MG/ML 1 ML VIAL IV PRN (08:57)
[2019-08-16] MEDS ORDERED: HYDROmorphone INJ1* 1 MG/ML SYRINGE IV PRN (08:57)
[2019-08-16 09:46] VITALS: BP 125/81
--- NOTE | 2019-08-17 11:24 | OP ---
DATE OF OPERATION: 08/16/19 - [facility] DATE OF : 72 ATTENDING SURGEON: Liz Almanza MD HEALTH EDUCATION AIDE: FROILAN Eddy. An employment legal assistant was needed for the entirety of the case to help with positioning and retraction and was utilized throughout all portions of the case. ANESTHESIOLOGIST: Dr. Membreno. ANESTHESIA: General, interscalene block. PRE-OP DIAGNOSES: Left shoulder acromioclavicular joint arthritis and bicipital tendinitis. POST-OP DIAGNOSES: Left shoulder acromioclavicular joint arthritis, bicipital tendinitis, and partial-thickness tear of the rotator cuff. OPERATIVE PROCEDURE: Left shoulder arthroscopy with: 1. Extensive glenohumeral debridement. 2. Subacromial decompression with acromioplasty. 3. Distal clavicle excision. 4. Rotator cuff repair using Regeneten patch. 5. Open biceps tenodesis COMPLICATIONS: None. ESTIMATED BLOOD LOSS: Minimal. IMPLANTS USED: One medium Regeneten patch and one 2.8 mm Q-FIX. DISPOSITION: Stable. INDICATIONS: Judit Oconnor is a 49-year-old female with persistent shoulder pain. She has AC joint injection arthritis as well as impingement and bicipital tendinitis. After extensive discussion of the risks and benefits of operative versus nonoperative treatment, she has elected to proceed with surgical treatment. Risks include, but not limited to, bleeding; infection; damage to nerves, vessels, surrounding structures; wound nonhealing; persistent pain; need for further surgery; scarring; stiffness; incomplete relief of symptoms; and risks of anesthesia. DESCRIPTION OF PROCEDURE: The patient was greeted in the preoperative area by the attending surgeon. Correct extremity was marked and consent was confirmed. The patient underwent interscalene nerve block by anesthesiologist, after which she was brought back to the operating suite where she was placed in the supine position on the operating table. She then underwent general anesthesia and endotracheal intubation, after which the patient was positioned in the right lateral decubitus position. All bony prominences were padded and secured with pegboard. The left arm was draped unsterile with 10 pounds of traction. The left shoulder was then prepped and draped in the usual sterile fashion with chlorhexidine soap, scrub, and alcohol wipe and final prep with ChloraPrep. After appropriate surgical pause indicating side, site, procedure, and administration of antibiotics, the standard postero-lateral portal was made sharply with 11 blade. The scope was introduced into the joint and the joint was examined. There was abundant synovitis that was present, evidence of a superior labral tear type 2, subscap was intact. The anterior portal was made in an outside-in fashion. Shaver was used to debride back the anterior, posterior, and superior labrum. The inferior recess was intact. Glenohumeral joint had grade 0 to 1 changes. The undersurface of the rotator cuff had high- grade partial-thickness tear which was debrided back using shaver. Biceps was then tenotomized for later tenodesis. Once the intra-articular work was done, attention was directed to the subacromial space. With the scope positioned in the subacromial space, lateral portal was made in an outside-in fashion. Shaver was used to debride back the abundant bursa that was present. The undersurface of the acromion was skeletonized using electrocautery device. A 4.0 oval bur was then used to perform acromioplasty. Once this was done, attention was directed to the distal clavicle. The lety brought into the anterior portal. The distal 8 mm of the clavicle were then resected with care to preserve the CC ligament. Once all loose debris was removed, attention was directed to the cuff. Because the patient had high grade partial-thickness tearing of the undersurface and an intact bursal side, the decision was made to proceed with Regeneten patch. The Regeneten patch was then brought to the field. The size medium was chosen. It was then placed under arthroscopic and direct visualization. It was then secured medially with tendon eduardo through separate a stab incision and then laterally with PEEK eduardo to the bone. It was well secured. Final images were obtained and attention was directed to the biceps. With the bed was airplaned to the left side, the anterior aspect of the shoulder was prepped again using ChloraPrep. A 15 blade was used to make an incision along the biceps tendon. The soft tissues were carefully dissected to expose the pec fascia, which was elevated. The groove was then palpated and the biceps was identified and brought through the wound. There was abundant synovitis that was present. The groove was then prepared in usual fashion with electro-cautery device, red ball rasp, and osteotome. The Q-FIX was then drilled and deployed with excellent purchase. The sutures were then passed through the tendon approximately 1 cm proximal to the musculotendinous junction in a Evangelist-Gabriele type configuration, the excess stump was excised, the biceps was shuttled back to the wound. The wound was then copiously irrigated with sterile saline. The portals were closed with 3-0 nylon, the skin closed in layers with 3-0 Monocryl. Sterile dressings were applied. A Cryo/Cuff and an UltraSling were applied. She was awoken from anesthesia and transferred to PACU in stable condition. POSTOPERATIVE PLAN: She will be nonweightbearing in a sling for 3 weeks, start physical therapy next week. Discharge on pain medication. DVT prophylaxis was considered, but deferred due to no previous personal or family history. I will see the patient back in 10 to 14 days. [id number]/CPS #: [id number] ANDRÉS
== END 2019-08-16 10:22 | disposition home or self-care (01) ==
LOC: OREAST 06:34
PROVIDERS: ATTEND Orthopaedic Surgery
DX: M19.212 Secondary osteoarthritis, left shoulder (principal); M75.22 Bicipital tendinitis, left shoulder; M75.112 Incomplete rotator cuff tear or rupture of left shoulder, not specified as traumatic; Z87.891 Personal history of nicotine dependence; G89.18 Other acute postprocedural pain
CPT/HCPCS: C1713; C1776; J0330; J0690; J1100; J1200; J1885; J2001; J2250; J2405; J2704; J2795; J3010